=== PATIENT | female | born 1945 | race Caucasian/White ===

== ENCOUNTER → 2021-01-11 | Outpatient (CLI) | payer MEDICARE ==
[~2021-01-11] VITALS: Ht 160 cm; Wt 68.5 kg
== END ==
LOC: OPSV 12:00
DX: M81.0 Age-related osteoporosis without current pathological fracture (principal)
CPT/HCPCS: 96372

== ENCOUNTER → 2021-05-16 | Outpatient (CLI) | payer MEDICARE | LOC: KOH-I 08:00 → EXRD 05-23 10:30 → KOH-I 05-23 10:30 | DX: R74.01 Elevation of levels of liver transaminase levels (principal); K82.8 Other specified diseases of gallbladder; N28.89 Other specified disorders of kidney and ureter | CPT/HCPCS: 76705 ==

== ENCOUNTER 2021-08-01 11:07 | Emergency (ER) | payer MEDICARE ==
[2021-08-01 13:22] LABS: HEMOGLOBIN 10.5 gm/dl (12.3-15.3); RED BLOOD COUNT 3.4 M/UL (4.00-5.10)
== END 2021-08-01 16:15 | disposition home or self-care (01) ==
LOC: ER1 11:07
PROVIDERS: Nurse Practitioner
DX: K59.00 Constipation, unspecified (principal); I11.9 Hypertensive heart disease without heart failure; E11.9 Type 2 diabetes mellitus without complications
CPT/HCPCS: 74018; 80053; 81001; 85025; 99283; J7030

== ENCOUNTER → 2021-10-03 | Outpatient (CLI) | payer MEDICARE ==
[~2021-10-03] VITALS: Ht 154.9 cm; Wt 67.6 kg
== END ==
LOC: OPSV 09:00
DX: M81.0 Age-related osteoporosis without current pathological fracture (principal)
CPT/HCPCS: 96372

== ENCOUNTER → 2022-04-22 | Outpatient (CLI) | payer MEDICARE | LOC: OPSV 14:00 | DX: M81.0 Age-related osteoporosis without current pathological fracture (principal) | CPT/HCPCS: 96372 ==